=== PATIENT | female | born 1980 | race Caucasian/White ===

== ENCOUNTER → 2017-12-24 17:00 | Outpatient (CLI) | payer BC ==
[2012-10-13 06:47] VITALS: BMI 20.7
== END | disposition home or self-care (01) ==
LOC: D.MAMMO 14:30
DX: N64.4 Mastodynia (principal)

== ENCOUNTER 2019-08-18 13:48 | Inpatient (IN) | payer BC ==
[~2019-08-18] VITALS: Ht 160 cm; Wt 67.2 kg
--- NOTE | 2019-08-18 16:07 | NUR ---
PT VOMITING, UNABLE TO KEEP ANYTHING DOWN STATES STOMACH IS JUST FEELS VERY FULL AND NAUSEOUS, CT HERE TO TAKE PATIENT FOR SCAN, ADVISED PT SHE MAY END UP WITH NGT FOR GUT REST. CONTINUE WITH PLAN OF CARE
[2019-08-18 16:40] VITALS: BP 130/72
[2019-08-18 17:14] VITALS: BP 130/72; BMI 22.9
[2019-08-18 20:00] VITALS: BP 108/69
[2019-08-19] VITALS: BP 113/66
--- NOTE | 2019-08-19 02:50 | NUR ---
ASSESSED AT THE BEGINNING OF THE SHIFT. PT IS ALERT AND ORIENTED, ABLE TO VERBALIZE NEEDS. SHE HAS HAD SOME NAUSEA AND WAS GIVEN ZOFRAN ONCE BUT HELD OFF FROM PAIN MEDS UNTIL MUCH LATER. SHE STATED SHE DID NOT LIKE THE WAY IT MADE HER FEEL. LATER DURING THE NIGHT SHE DID ASK FOR IT DUE TO ABD PAIN. AT THIS TIME SHE IS ASLEEP. SHE IS GETTING UP TO THE BATHROOM AD CINDI AND HAS A FAMILY MEMBER SLEEPING IN THE ROOM WITH HER.
[2019-08-19 04:00] VITALS: BP 111/72
[2019-08-19 05:20] LABS: BASOPHILS 0.2 % (0-2); EOSINOPHILS 0.1 % (0-7); HEMATOCRIT 43.8 % (36.0-48.0); HEMOGLOBIN 14.6 g/dL (12-16); IMMATURE GRANULOCYTES 0.3 % (0-5); LYMPHOCYTES 4.1 % (15-50); MCH 30.4 pg (26.0-34.0); MCHC 33.3 g/dL (31.0-37.0); MCV 91.3 fL (80.0-100.0); MEAN PLATELET VOLUME 9.6 fL (7.4-10.4); MONOCYTES 5.7 % (2-11); NEUTROPHILS 89.6 % (40-80); PLATELET COUNT 183 10x3/uL (130-400); RDW 12.5 % (11.5-14.5); WBC 13.3 10x3/uL (4.8-10.8)
[2019-08-19 05:47] LABS: ALBUMIN 2.9 g/dL (3.4-5.0); ALKALINE PHOSPHATASE 72 U/L (46-116); ALT (SGPT) 25 U/L (10-68); BILIRUBIN - TOTAL 0.65 mg/dL (0.2-1.3); CALC OSMOLALITY 272 mosm/kg (275-300); CALCIUM 8.6 mg/dL (8.5-10.1); CARBON DIOXIDE 26.9 mmol/L (21.0-32.0); CHLORIDE - SERUM 102 mmol/L (98-107); CREATININE - SERUM 0.7 mg/dL (0.6-1.3); GLUCOSE 107 mg/dL (74-106); POTASSIUM - SERUM 3.9 mmol/L (3.5-5.1); PROTEIN - SERUM 6.6 g/dL (6.4-8.2); SODIUM 137 mmol/L (136-145); UREA NITROGEN 10 mg/dL (7-18); eGFR NON AFRICAN AMERICAN > 90 mL/min (90-120)
[2019-08-19 08:29] VITALS: BP 132/74
[2019-08-19 12:33] VITALS: BMI 22.8
[2019-08-19 12:52] VITALS: BP 114/64
[2019-08-19 18:14] VITALS: BP 114/63
[2019-08-19 20:00] VITALS: BP 105/55
[2019-08-20] VITALS (11 sets, daily range): BP systolic 110–149; BP diastolic 67–87
--- NOTE | 2019-08-20 06:10 | NUR ---
ASSESSED AT THE BEGINNING OF THE SHIFT. PT IS ALERT AND ORIENTED, ABLE TO VEBALIZE NEEDS. MS MONTALVO HAS REMAINED IN BED WITH HER AT THE BEDSIDE EXCEPT FOR GETTING UP TO THE BATHROOM. SHE HAS NEVER STATED SHE WAS PAIN FREE AND EVEN WHEN SHE REQUESTED AND RECEIVED PAIN MEDS SHE DID NOT REST WELL OR LOOK IF SHE WAS REALLY RECEIVING A LOT OF PAIN RELIEF. SHE COMPLAINS OF SPASMS LIKE SHOOTING PAIN LOW IN HER ABD TO EITHER SIDE. AT MIDNIGHT SHE WAS PLACED NPO FOR THE POSSIBLE SURGERY THIS MORNING. AT THIS TIME SHE IS RESTING BUT EASILY AWAKENED.
[2019-08-20 06:26] LABS: BASOPHILS 0.2 % (0-2); EOSINOPHILS 0.3 % (0-7); HEMATOCRIT 42.3 % (36.0-48.0); HEMOGLOBIN 13.9 g/dL (12-16); IMMATURE GRANULOCYTES 0.2 % (0-5); LYMPHOCYTES 6.8 % (15-50); MCH 30.4 pg (26.0-34.0); MCHC 32.9 g/dL (31.0-37.0); MCV 92.6 fL (80.0-100.0); MONOCYTES 7.9 % (2-11); NEUTROPHILS 84.6 % (40-80); PLATELET COUNT 178 10x3/uL (130-400); RBC 4.57 10x6/uL (4.00-5.40); RDW 12.6 % (11.5-14.5)
[2019-08-20 06:31] LABS: WBC 9.2 10x3/uL (4.8-10.8)
[2019-08-20 06:40] LABS: ALBUMIN 2.6 g/dL (3.4-5.0); ALKALINE PHOSPHATASE 81 U/L (46-116); ALT (SGPT) 20 U/L (10-68); BILIRUBIN - TOTAL 0.71 mg/dL (0.2-1.3); CALC OSMOLALITY 271 mosm/kg (275-300); CALCIUM 8.4 mg/dL (8.5-10.1); CARBON DIOXIDE 27.6 mmol/L (21.0-32.0); CHLORIDE - SERUM 100 mmol/L (98-107); CREATININE - SERUM 0.8 mg/dL (0.6-1.3); GLUCOSE 94 mg/dL (74-106); PROTEIN - SERUM 6.5 g/dL (6.4-8.2); SODIUM 136 mmol/L (136-145); UREA NITROGEN 12 mg/dL (7-18); eGFR NON AFRICAN AMERICAN 85 mL/min (90-120)
[2019-08-20 06:42] LABS: POTASSIUM - SERUM 3.3 mmol/L (3.5-5.1)
--- NOTE | 2019-08-20 08:34 | NUR ---
PATIENT SITTING UP IN CHAIR OVER TRASH CAN. ASKED IF SHE WAS NAUSEOUS AND SHE REPLIED THAT SHE WAS. WELL IN PAIN OF A 7 OUT OF 10. I PROVIDED ZOFRAN AND MORPHINE. PATIENT SAID SHE "DOESN'T LIKE THAT THE MORPHINE MAKES HER DROWSY AND HER CHEST HURT." I REPLIED WE COULD TRY AND GET HER PAIN MEDICATION CHANGED BUT MOST PAIN MEDS MAKE YOU DROWSY. ROSALES AT BEDSIDE. CL IN REACH. WCTM
--- NOTE | 2019-08-20 12:27 | NUR ---
ROSALES AT BEDSIDE. STATES IV IS BURNING. REPOSITIONED IV TUBING AND SLOWED MAG TO 50 ML/H. IV FLUSHED AND HAD BLOOD RETURN. PATIENT STATES IT DOESN'T HURT " BAD" NOW. CL IN REACH. WCTM
--- NOTE | 2019-08-20 14:25 | NUR ---
FAMILY IN ROOM. CONCERNED ABOUT WHAT TIME THE PROCEDURE WILL BE. ON PHONE WITH SURGERY NOW TO FIND OUT. CL IN REACH. TM
--- NOTE | 2019-08-20 21:05 | NUR ---
TOOK IV PUMP WITH LIAISON OFFICER PUMP W/ DILAUDID TO [facility] 7 AND GAVE REPORT TO NURSE.
--- NOTE | 2019-08-20 22:05 | NUR ---
PT RECEIVED FROM OR, PT IS INTUBATED, F/C INPLACE, NGT TO LEFT NARE AND CLAMPED, A-LINE TO RIGHT WRIST, IV TO LEFT FOREARM AND LEFT A/C, PT REPORT FROM TAMMY BUCHANAN, PT CONNECTED TO MONITORS. RT AT BEDSIDE SETTING UP VENT.
[2019-08-20 23:28] LABS: BASOPHILS 0.1 % (0-2); EOSINOPHILS 0 % (0-7); HEMATOCRIT 46.5 % (36.0-48.0); HEMOGLOBIN 15.6 g/dL (12-16); IMMATURE GRANULOCYTES 0.5 % (0-5); LYMPHOCYTES 4.2 % (15-50); MCH 30.7 pg (26.0-34.0); MCHC 33.5 g/dL (31.0-37.0); MCV 91.5 fL (80.0-100.0); MEAN PLATELET VOLUME 9.7 fL (7.4-10.4); MONOCYTES 5.8 % (2-11); NEUTROPHILS 89.4 % (40-80); PLATELET COUNT 209 10x3/uL (130-400); RBC 5.08 10x6/uL (4.00-5.40); RDW 12.5 % (11.5-14.5); WBC 8.4 10x3/uL (4.8-10.8)
[2019-08-20 23:49] LABS: ALKALINE PHOSPHATASE 81 U/L (46-116); BILIRUBIN - TOTAL 0.88 mg/dL (0.2-1.3); CALCIUM 7.9 mg/dL (8.5-10.1); CARBON DIOXIDE 25.1 mmol/L (21.0-32.0); CHLORIDE - SERUM 103 mmol/L (98-107); CREATININE - SERUM 0.7 mg/dL (0.6-1.3); MAGNESIUM - SERUM 1.8 mg/dL (1.8-2.4); PHOSPHOROUS 2.3 mg/dL (2.5-4.9); PROTEIN - SERUM 5.3 g/dL (6.4-8.2); SODIUM 137 mmol/L (136-145); UREA NITROGEN 14 mg/dL (7-18); eGFR NON AFRICAN AMERICAN > 90 mL/min (90-120)
[2019-08-20 23:51] LABS: ALBUMIN 1.8 g/dL (3.4-5.0); ALT (SGPT) 13 U/L (10-68); CALC OSMOLALITY 278 mosm/kg (275-300); GLUCOSE 175 mg/dL (74-106); TROPONIN-I < 0.017 ng/mL (0.000-0.060)
[2019-08-21] VITALS (25 sets, daily range): BP systolic 87–154; BP diastolic 50–93; Ht 160 cm; Wt 67.2 kg
--- NOTE | 2019-08-21 00:12 | NUR ---
PT SEDATED ON VENT SUPPORT, VSS, NO DISTRESS NOTED
--- NOTE | 2019-08-21 01:00 | NUR ---
PT SEDATED ON VENT SUPPORT, NO CHANGES NOTED, VSS, WILL MONITOR FOR CHANGES
--- NOTE | 2019-08-21 03:00 | NUR ---
PT REASSESSMENT COMPLETED AT THIS TIME, NO CHANGES NOTED, VSS
--- NOTE | 2019-08-21 05:00 | NUR ---
I&O AND DAILY WEIGHT DOCUMENTATION COMPLETE, FAMILY AT THE BEDSIDE AND UPDATED ON PATIENTS STATUS, VSS
[2019-08-21 05:01] LABS: BASOPHILS 0.1 % (0-2); EOSINOPHILS 0 % (0-7); HEMATOCRIT 45.5 % (36.0-48.0); HEMOGLOBIN 15.1 g/dL (12-16); IMMATURE GRANULOCYTES 0.4 % (0-5); LYMPHOCYTES 4.8 % (15-50); MCH 29.8 pg (26.0-34.0); MCHC 33.2 g/dL (31.0-37.0); MCV 89.9 fL (80.0-100.0); MEAN PLATELET VOLUME 9.6 fL (7.4-10.4); MONOCYTES 6.3 % (2-11); NEUTROPHILS 88.4 % (40-80); PLATELET COUNT 243 10x3/uL (130-400); RBC 5.06 10x6/uL (4.00-5.40); RDW 12.7 % (11.5-14.5); WBC 10.5 10x3/uL (4.8-10.8)
[2019-08-21 05:21] LABS: ALBUMIN 1.8 g/dL (3.4-5.0); ALKALINE PHOSPHATASE 77 U/L (46-116); ALT (SGPT) 14 U/L (10-68); BILIRUBIN - TOTAL 0.68 mg/dL (0.2-1.3); CALC OSMOLALITY 275 mosm/kg (275-300); CALCIUM 7.8 mg/dL (8.5-10.1); CARBON DIOXIDE 24.7 mmol/L (21.0-32.0); CHLORIDE - SERUM 104 mmol/L (98-107); CREATININE - SERUM 0.7 mg/dL (0.6-1.3); GLUCOSE 132 mg/dL (74-106); MAGNESIUM - SERUM 1.7 mg/dL (1.8-2.4); POTASSIUM - SERUM 4.1 mmol/L (3.5-5.1); PROTEIN - SERUM 5.3 g/dL (6.4-8.2); SODIUM 137 mmol/L (136-145); UREA NITROGEN 13 mg/dL (7-18); eGFR NON AFRICAN AMERICAN > 90 mL/min (90-120)
--- NOTE | 2019-08-21 07:56 | NUR ---
PT AWAKE. TURNED AND PT PP ON VENT INCREASED AND PT THRASHING AROUND APPEARS TO BE IN A PANIC. VERSED GIVEN.
--- NOTE | 2019-08-21 11:19 | NUR ---
DR PATINO HERE. REPORTED UOP MARGINAL. B/P /. IVF INCREASED ORDERED. PT AWAKE AND GAGING. VERSED GIVEN.
--- NOTE | 2019-08-21 12:14 | NUR ---
DR MARIE HERE. FENTANYL OFF CPAP TRIALS BEGAN.
--- NOTE | 2019-08-21 14:16 | NUR ---
DR SEGOVIA HERE. SPOKE TO PTS BY PHONE AND SPOKE TO PT AT BS.
[2019-08-21 18:50] LABS: BASOPHILS 0.1 % (0-2); EOSINOPHILS 0.1 % (0-7); HEMATOCRIT 39.7 % (36.0-48.0); HEMOGLOBIN 13.1 g/dL (12-16); IMMATURE GRANULOCYTES 0.5 % (0-5); LYMPHOCYTES 7.9 % (15-50); MCH 30.3 pg (26.0-34.0); MCV 91.7 fL (80.0-100.0); MEAN PLATELET VOLUME 10.2 fL (7.4-10.4); MONOCYTES 9.7 % (2-11); NEUTROPHILS 81.7 % (40-80); PLATELET COUNT 213 10x3/uL (130-400); RBC 4.33 10x6/uL (4.00-5.40); RDW 12.8 % (11.5-14.5); WBC 9.8 10x3/uL (4.8-10.8)
--- NOTE | 2019-08-21 19:00 | NUR ---
PT ASSESSMENT COMPLETED AT THIS TIME, PT AAOX4, PT SATTES THAT SHE IS FEELING MUCH BETTER AND HER ABD IS NOT HURTING VERY MUCH AT THIS TIME, VSS, WILL MONITOR FOR CHANGES
[2019-08-21 19:02] LABS: CALC OSMOLALITY 279 mosm/kg (275-300); CALCIUM 7.6 mg/dL (8.5-10.1); CARBON DIOXIDE 29.3 mmol/L (21.0-32.0); CHLORIDE - SERUM 105 mmol/L (98-107); CREATININE - SERUM 0.7 mg/dL (0.6-1.3); GLUCOSE 117 mg/dL (74-106); MAGNESIUM - SERUM 1.9 mg/dL (1.8-2.4); POTASSIUM - SERUM 4.3 mmol/L (3.5-5.1); SODIUM 139 mmol/L (136-145); UREA NITROGEN 16 mg/dL (7-18); eGFR NON AFRICAN AMERICAN > 90 mL/min (90-120)
--- NOTE | 2019-08-21 20:57 | NUR ---
PT C/O PAIN AND TIGHTNES TO LEFT FA IV SITE, SOME SWELLING NOTED, IV D/C AND IVF MOVED TO LEFT A/C IV AT THIS TIME, NO OTHER COMPLAINTS AT THIS TIME
--- NOTE | 2019-08-21 23:00 | NUR ---
ASSESSMENT COMPLETE PT STATES PAIN CONTROLLED WITH THREADER OPERATOR. C/O DISCOMFORT WITH NGT INFORMED AND EDUCATED ON NGT. PT WAS WANTING IT REMOVED INFORMED THAT IT WOULD BE UP TO PHYSICIANS WHEN TO DC BUT LIKELY TO HAVE THE NGT IN FOR COUPLE MORE DAYS APPLIED MOISTURIZOR CREAM TO EASE DISCOMFRT
[2019-08-22] VITALS (19 sets, daily range): BP systolic 104–126; BP diastolic 48–84
--- NOTE | 2019-08-22 05:00 | NUR ---
ATTEMPT TO GET AM LAB FROM RIGHT RADIAL ARTLINE FLUSHES EASILY BUT UNABLE TO GET LABS. CHARGE NURSE CALLED LAB TO INFORM THEY WILL SEND ADJUNCT FACULTY FOR MEDICAL TERMINOLOGY UP
--- NOTE | 2019-08-22 05:00 | NUR ---
FAMILY AT BEDSIDE FOR VISITATION
[2019-08-22 06:32] LABS: BASOPHILS 0.2 % (0-2); EOSINOPHILS 0.5 % (0-7); HEMATOCRIT 38.9 % (36.0-48.0); HEMOGLOBIN 12.7 g/dL (12-16); IMMATURE GRANULOCYTES 0.2 % (0-5); MCH 30.3 pg (26.0-34.0); MCHC 32.6 g/dL (31.0-37.0); MCV 92.8 fL (80.0-100.0); MEAN PLATELET VOLUME 9.6 fL (7.4-10.4); MONOCYTES 10.5 % (2-11); NEUTROPHILS 75.6 % (40-80); PLATELET COUNT 237 10x3/uL (130-400); RBC 4.19 10x6/uL (4.00-5.40); RDW 13.2 % (11.5-14.5); WBC 8.5 10x3/uL (4.8-10.8)
[2019-08-22 06:47] LABS: ALBUMIN 1.8 g/dL (3.4-5.0); ALKALINE PHOSPHATASE 66 U/L (46-116); ALT (SGPT) 15 U/L (10-68); BILIRUBIN - TOTAL 0.38 mg/dL (0.2-1.3); CALC OSMOLALITY 278 mosm/kg (275-300); CALCIUM 7.7 mg/dL (8.5-10.1); CARBON DIOXIDE 32.1 mmol/L (21.0-32.0); CHLORIDE - SERUM 104 mmol/L (98-107); CREATININE - SERUM 0.6 mg/dL (0.6-1.3); GLUCOSE 87 mg/dL (74-106); POTASSIUM - SERUM 3.6 mmol/L (3.5-5.1); PROTEIN - SERUM 5.6 g/dL (6.4-8.2); SODIUM 140 mmol/L (136-145); UREA NITROGEN 15 mg/dL (7-18); eGFR NON AFRICAN AMERICAN > 90 mL/min (90-120)
--- NOTE | 2019-08-22 08:15 | NUR ---
RIGHT RADIAL SHERIE AND DE LA CRUZ CATHETER DC'D PER DR. SEGOVIA. NGT REMOVED PER DR. SEGOVIA. PT RATES PAIN 6/10 AT ABDOMINAL INCISION. DESIGN ENGINEERING TECHNICIAN IN USE. WILL CONTINUE TO MONITOR.
--- NOTE | 2019-08-22 08:42 | NUR ---
MARY DRAIN ON ABDOMEN DC'D AT THIS TIME PER DR. SEGOVIA. BETADINE SWABS USED. 4X4 AND TEGEDERM DRESSING APPLIED TO AREA. PT TOLERATED WELL. NO FURTHER NEEDS. WILL CONTINUE TO MONITOR.
--- NOTE | 2019-08-22 11:00 | NUR ---
REASSESSMENT DONE SEE FLOW SHEET VSS. NO SIGNS OF ACUTE DISTRESS NOTED.
--- NOTE | 2019-08-22 13:11 | NUR ---
Nutrition Follow-up: POD 2 exlap with open cecectomy and bowel decompression. NGT removed. Per MD, possible clear liquids tomorrow if doesn't require replacement of NGT. Had sips of water today. Diet: NPO (ice chips and sips of H2O) Wt: 148# (08/22 - bedscale); 139.9# (08/21 - bedscale) Labs noted: Ca 7.7, Alb 1.8 Meds noted: LR @ 125 -Pt NPO/clear liquids since admit (08/18); if unable to advance diet, rec initiate nutrition support. -RD following.
--- NOTE | 2019-08-22 15:05 | NUR ---
1300 PT AMBULATED WITH ASSISTANCE FROM CHAIR. NO SIGNS OF ACUTE DISTRESS NOTED. 1500 REASSESSMENT DONE SEE FLOW SHEET VSS
--- NOTE | 2019-08-22 21:50 | NUR ---
OOB TO BATHROOM. VOIDED. AMBULATED IN HALLWAY FOR APPROX 10 MINUTES. ASSISTED BACK TO BED. C/O SEVERE PAIN. ENCOURAGED PIPE FITTER APPRENTICE USE MORE FREQUENTLY.
[2019-08-23] VITALS (15 sets, daily range): BP systolic 101–129; BP diastolic 58–96
--- NOTE | 2019-08-23 04:30 | NUR ---
OOB. C/O SEVERE ABD PAIN. WALKED THE LENGTH OF THE HALLWAY X 2. REPORTS FEELING BETTER AFTER WALKING. TO CHAIR AT BEDSIDE.
[2019-08-23 07:19] LABS: ALBUMIN 1.9 g/dL (3.4-5.0); ALKALINE PHOSPHATASE 69 U/L (46-116); ALT (SGPT) 16 U/L (10-68); BILIRUBIN - TOTAL 0.41 mg/dL (0.2-1.3); CALCIUM 7.9 mg/dL (8.5-10.1); CARBON DIOXIDE 32.6 mmol/L (21.0-32.0); CHLORIDE - SERUM 102 mmol/L (98-107); CREATININE - SERUM 0.6 mg/dL (0.6-1.3); GLUCOSE 81 mg/dL (74-106); POTASSIUM - SERUM 3.2 mmol/L (3.5-5.1); PROTEIN - SERUM 5.7 g/dL (6.4-8.2); SODIUM 138 mmol/L (136-145); eGFR NON AFRICAN AMERICAN > 90 mL/min (90-120)
[2019-08-23 07:22] LABS: CALC OSMOLALITY 272 mosm/kg (275-300); UREA NITROGEN 6 mg/dL (7-18)
[2019-08-23 07:29] LABS: BASOPHILS 0.4 % (0-2); EOSINOPHILS 2.7 % (0-7); HEMOGLOBIN 12.1 g/dL (12-16); IMMATURE GRANULOCYTES 0.6 % (0-5); LYMPHOCYTES 18.3 % (15-50); MCH 29.7 pg (26.0-34.0); MCHC 31.8 g/dL (31.0-37.0); MCV 93.4 fL (80.0-100.0); MEAN PLATELET VOLUME 9.6 fL (7.4-10.4); MONOCYTES 12.8 % (2-11); NEUTROPHILS 65.2 % (40-80); PLATELET COUNT 255 10x3/uL (130-400); RBC 4.07 10x6/uL (4.00-5.40); WBC 7.7 10x3/uL (4.8-10.8)
--- NOTE | 2019-08-23 09:00 | NUR ---
0700 ASSESSMENT DONE SEE FLOW SHEET. VSS. 0900 MEDS GIVEN PER OCT. VSS. R FOREARM PIV STARTED 20G.
--- NOTE | 2019-08-23 10:22 | OP ---
PATIENT NAME: MARIANO MONTALVO MEDICAL RECORD: [id number] :78 [facility] ADMISSION DATE:08/18/19 SURGEON: RAY SEGOVIA MD DATE OF OPERATION: 08/20/2019 PREOPERATIVE DIAGNOSIS: 1. Acute abdomen, probable acute appendicitis. 2. Ileus. POSTOPERATIVE DIAGNOSES: 1. Acute abdomen due to ruptured gangrenous appendicitis. 2. Free pus (non-loculated) throughout the abdomen with diffuse peritonitis. 3. Appendix that was stuck down to the pelvic sidewall, making it hazardous to proceed with further with a laparoscopic approach. 4. Ileus. 5. Sepsis. 6. Dilated small bowel, which required decompression, so they could be reinserted into the abdomen. 7. Intraoperative ventricular tachycardia. PROCEDURES: 1. Attempted laparoscopic appendectomy. 2. Conversion to exploratory laparotomy. 3. Open cecectomy (colon resection of the cecum). 4. Small-bowel decompression. DRAINS: One 10-Polish round closed suction drain. The risks, possible complications, and alternatives to the procedure were explained to the patient. She elected to proceed. The discussion specifically included, but was not limited to, bleeding requiring an emergency reoperation, infection, small bowel injury and the need for an open procedure. DESCRIPTION OF THE PROCEDURE: The patient was seen early on 08/20/2019. A physical exam was performed and she was certainly no better than the day before. I received a hand-off from Dr. Garcia. It was his impression that the patient needed an operation on Thursday if the patient was no better. Clearly, on physical examination, she was no better. She had peritonitis to percussion and was tender in all quadrants, mainly in the right lower quadrant. The patient was conveyed to the operating room urgently on 08/20/2019. General anesthesia was induced by the anesthesia staff. The abdomen was sterilely prepped and draped. A small skin incision was accomplished in the left upper quadrant. A Veress needle was inserted through the skin incision into the peritoneal cavity. CO2 insufflation was begun. Once a sufficient pneumoperitoneum had been achieved, a 5-mm trocar was inserted through an incision in the left lower quadrant. A 5-mm trocar was inserted through an incision in the left upper quadrant. A 12-mm trocar was inserted through an incision at the umbilicus. The distention of the small bowel from the ileus made it difficult to perform the operation. Purulence was identified in all quadrants. Cultures were obtained with suctioning. I irrigated and aspirated in all quadrants. I OPERATIVE REPORT [id number] MARIANO MONTALVO elevated the uterus, the right and left tubes and ovaries. Exudate was found on the bowel as well as the tubes, ovaries, and uterus. The appendix was identified along the right pelvic sidewall. Utilizing blunt dissection, I released some interloop abscesses in the small bowel. I began to mobilize the appendix and was fearful that this would cause a right ureteral injury. Additionally, with retraction of the appendix, which was gangrenous and perforated, portions of the appendix began to tear-away. The largest of these, which was the tip of the appendix was placed within a bag retrieval device and was withdrawn through the umbilical fascia defect. The 12-mm trocar was replaced. The abdomen was reinsufflated. I continued my dissection along the pelvic sidewall and then came to a point where I was uncomfortable with further dissection as I was fearful that this would lead to ureteral injury. I elected to convert to exploratory laparotomy. I went out and got my headlight and upon returning to the room, I was told the patient was in ventricular tachycardia with a pulse. We undraped the patient. Defibrillator pads were placed on the patient and we covered up the incisions with a sterile blue towel. We were preparing for chest compressions and defibrillation should the patient lose a pulse. She converted into sinus rhythm spontaneously, which is quite unusual. Some additional medications were given and these are listed on the anesthesia sheet. The patient stayed in sinus rhythm and was really not even tachycardic after this episode. We then re-prepped patient. A transverse incision was accomplished in the suprapubic area. This was a Pfannenstiel type incision. I dissected down through skin and subcutaneous tissue as well as Anupam fascia. The anterior fascia was incised transversely. I then performed undermining of the anterior fascia proximally and distally. The rectus muscles were in the midline. The peritoneal cavity was entered sharply. An Jamar retractor was placed. I packed off the small bowel as best I could. It was difficult because it was very dilated and kept coming into the operative field. I incised along the white line of Toldt. Most of the dissection of the cecum was posterior dissection and was a blunt dissection. There was some contamination with some drainage of feculent material out through the area where the appendix had ripped away. I began my dissection of the appendix off the right pelvic sidewall. There was a lot of induration and this made the dissection more difficult. I identified what appeared to be the right ureter and it appeared to be intact. I was able to dissect the tissue off of it. I was able to mobilize cecum enough to get it into the operative field. I then identified that the appendiceal stump was very indurated and likely would not hold efraín very well. I took the Endo-JAYDE stapler and stapled across the mid cecum. This took 2 of the blue loads. I identified that the staple line was going to be under tension and I elected to excise the entire visualized portions of the cecum and this was done with the Endo-JAYDE. Also, a seromyotomy of the distal ileum as well as a OPERATIVE REPORT [id number] MARIANO MONTALVO seromyotomy in the colon were closed with interrupted imbricating 3-0 Vicryl sutures. At no time was there any apparent full-thickness bowel injury. I then exteriorized as much of the small bowel as I could through this incision. I palpated the ligament of Treitz and ran the small bowel from there to the ileocecal valve. I bluntly swept away as much of the exudate as I could the small bowel. Down in the pelvis, I irrigated. Here, I swept away as much of the exudate off the cul-de-sac as well as the rectum, tubes and ovaries as well as the posterior uterus. I then irrigated in all quadrants and aspirated. There was no bleeding. I tried to re-insert the small bowel into the abdomen and was unable to do so due to the distention of small bowel from the patient's ileus. I then elected to decompress the small bowel. Proximally at the midpoint between the jejunum and the ileum. A pursestring suture was applied on the antimesenteric border of the small bowel. This was a 3-0 Vicryl. An enterotomy was accomplished through the bowel at this site. Utilizing a Cervantes sucker initially at the afferent position and then in the efferent position, I was able to "milk" the enteral contents to the Cervantes sucker where I suctioned out the enteral contents. Once I was satisfied with the decompression of the small bowel, I then performed a tangential firing of the TA-30 stapler in order to close this enteric defect. I was then able to re-insert the small bowel into the abdominal cavity. There appeared to be no twisting of the small bowel. I irrigated and aspirated in the pelvis. There was no bleeding. I then brought out a 10-Polish round closed suction drain and placed it down in the pelvis. The drain was sutured to skin with a 2-0 nylon. This drain had been brought out through the lowest 5-mm trocar site, which was in the left lower quadrant. The 5-mm trocar sites were closed with interrupted intracuticular 3-0 Vicryls. The fascia at the umbilicus was closed with a single 0-Vicryl suture. The skin at the umbilicus was closed with interrupted 4-0 Vicryl Rapide suture. The peritoneum at the Pfannenstiel incision was reperitonealized with a running #1 Vicryl. The rectus muscles were approximated in the midline with interrupted horizontal mattress #1 Vicryls. The anterior fascia was approximated with running looped #1 PDS from the left and the right. Anupam's fascia was approximated with interrupted 3-0 Vicryls. The subdermis was approximated with interrupted 3-0 Vicryls. The skin was approximated with a running intracuticular 3-0 Vicryl. Sterile dressings were applied. The patient was then conveyed to the intensive care unit in critical but stable condition. I had discussed with Dr. Powell intraoperatively whether we should extubate the patient or not. He felt that keeping the patient intubated overnight was the alvarado thing to do, so that is what we did. I agree. TRANSINT:[id number] Voice Confirmation ID: [id number] DOCUMENT ID: [id number] 08/23/2019 Edited for director of physiotherapy services error, dmm. OPERATIVE REPORT [id number] MARIANO MONTALVO, RAY BENJAMIN at 1022 CC: ALENA POWELL MD and YVETTE RODRIGUEZ MD [id number] DICTATION DATE: 08/21/19 1539 [employer] INS[employer] CLAIMS ADJUSTER: 08/21/191999 ADM IN [facility] [address] [place] [address]
--- NOTE | 2019-08-23 11:00 | NUR ---
REASSESSMENT DONE SEE FLOW SHEET VSS
--- NOTE | 2019-08-23 15:00 | NUR ---
1300 WATER PROVIDED PER PT REQUEST. WILL CONTINUE TO MONITOR. 1500 REASSESSMENT DONE SEE FLOW SHEET.
[2019-08-23 19:02] LABS: MAGNESIUM - SERUM 1.9 mg/dL (1.8-2.4)
--- NOTE | 2019-08-23 19:03 | MORECARE ---
CASE MANAGEMENT DISCHARGE SUMMARY PATIENT: MARIANO MONTALVO UNIT: [id number] ADM DATE: 08/18/19 AGE: 39 : [birth year] SEX: F ROOM/BED: [facility] AUTHOR: CHELY VENEGAS PHYSICIAN: REFERRING PHYSICIAN: YVETTE RODRIGUEZ MD DATE OF SERVICE: 08/23/19 Discharge Plan Patient Name: MARIANO MONTALVO [facility] [facility] 1980 Planned Disposition: Home Anticipated Discharge Date: Discharge Date: Expected LOS: Initial Reviewer: [email or web address] Initial Review Date: 08/23/2019 Generated: 08/23/19 8:03 pm Patient Name: MARIANO MONTALVO Page [id number] at 1903 All edits/amendments must be made on the electronic document DICTATION DATE: 08/23/191902 PIECE DYER: JORDANA 08/23/191902 RPT#: [id number] DC DATE: STATUS: ADM IN [facility] [address] [place] [address] END OF REPORT
--- NOTE | 2019-08-23 19:10 | MORECARE ---
CASE MANAGEMENT DISCHARGE SUMMARY PATIENT: MARIANO MONTALVO UNIT: [id number] ADM DATE: 08/18/19 AGE: 39 : [birth year] SEX: F [facility] AUTHOR: RUBI,DOC PHYSICIAN: REFERRING PHYSICIAN: YVETTE RODRIGUEZ MD DATE OF SERVICE: 08/23/19 Discharge Plan Patient Name: MARIANO MONTALVO Facility: [facility]:[place] : 1980 Planned Disposition: Home Anticipated Discharge Date: Discharge Date: Expected LOS: Initial Reviewer: [email or web address] Initial Review Date: 08/23/2019 Generated: 08/23/19 8:10 pm Comments DCP- Discharge Planning Updated by [email or web address]: Ania Thorpe on 08/23/19 6:[address] Patient Name: MARIANO MONTALVO Admission Status: Elective Accout number: [id number] Admission Date: 08-18-2019 : 1980 Admission Diagnosis: Attending: YVETTE RODRIGUEZ Current LOS: 5 Anticipated DC Date: Planned Disposition: Home Primary Insurance[facility] [employer] [facility] Discharge Planning Comments: CM met with patient to complete initial dc planning assessment. CM educated patient on the CM role and verbal consent given by patient to complete assessment. Patient lives at home with her where she is independent with her care. At discharge patient plans to return home and feels this is a safe discharge. CM discussed availability of home health, rehab services, and medical equipment. Her family will drive her home. Patient denied known discharge needs at this time. CM will continue to follow and will assist as needed with dc plans/needs. Nurse Practitioner Physician Assistant: Ania Thorpe DCPIA - Discharge Planning Initial Assessment Updated by [email or web address]: Ania Thorpe on 08/23/19 7:03 pm * Is the patient Alert and Oriented? Yes * How many steps to enter\exit or inside your home? * PCP JENNIFER * Pharmacy [facility] * Preadmission Environment Home with Family * ADLs Independent * Equipment None * List name and contact numbers for known caregivers / representatives who currently or will assist patient after discharge: THOMAS MONTALVO - SPOUSE - [phone] JAQUAN MONTALVO - DAUGHTER- [phone] * Verbal permission to speak to the caregivers and representatives has been obtained from the patient. Yes * Community resources currently utilized None * Additional services required to return to the preadmission environment? No * Can the patient safely return to the preadmission environment? Yes * Has this patient been hospitalized within the prior 30 days at any hospital? No Last DP export: 08/23/19 6:03 pm Patient Name: MARIANO MONTALVO Page [phone] at 1910 All edits/amendments must be made on the electronic document DICTATION DATE: 08/23/191909 UNIT SUPERVISOR: JORDANA 08/23/191909 RPT#: [id number] DC DATE: STATUS: ADM IN [facility] [address] [place] [address] END OF REPORT
[2019-08-23 19:11] LABS: POTASSIUM - SERUM 3.7 mmol/L (3.5-5.1)
--- NOTE | 2019-08-23 19:28 | NUR ---
IN ROOM, ALERT AND ORIENTED TIMES 3. IV TO RIGHT AC SALINE LOC, TO LEFT FOREARM PATENT WITH LR AND SUPERVISOR ROSE GRADING INFUSING VIA PUMP PER ORDERS. HAS SOME PAIN TO ABDOMEN, BUT STATES IT IS MORE OF DISCOMFORT THAT MEDICATION IS EFFECTIVE. REQUESTS SHOWER, WILL BE GRANTED. ABLE TO AMBULATE AROUND ROOM WITHOUT DIFFICULTY. WILL NOTE ANY CHANGE.
--- NOTE | 2019-08-24 01:12 | NUR ---
I have reviewed this patient and I concur with the Shift Assessment completed by the Licensed Practical Nurse today this shift.
[2019-08-24 01:30] VITALS: BP 127/75
[2019-08-24 05:14] VITALS: BP 127/67
[2019-08-24 07:32] VITALS: BP 131/78
--- NOTE | 2019-08-24 08:00 | NUR ---
ALERT AND ORIENTED. LUNGS CLEAR BILATERALLY. HEART SOUNDS S1 AND S2 HEARD IN ALL PEREZ. BOWEL SOUNDS ACTIVE X 4. SKIN INTACT WITHOUT REDNESS. IV PATENT TO RIGHT AC WITHOUT REDNESS. IV PATENT TO LFA SL. DENIES NEEDS. BED LOW. CALL JOHNSON AND PERSONAL ITEMS IN REACH. WILL CONTINUE TO MONITOR.
--- NOTE | 2019-08-24 15:40 | NUR ---
PATIENT STATES IV TO LFA AND RIGHT AC PAINFUL. BOTH IVS FLUSH WELL BUT PATIENT STATES PAIN WITH FLUSHING. BOTH IVS REMOVED WITH TIP INTACT. RESITED TO LEFT LOWER FOREARM WITH 22GAUGE.
[2019-08-24 16:05] VITALS: BP 130/78
[2019-08-24 19:30] VITALS: BP 122/78
--- NOTE | 2019-08-24 20:00 | NUR ---
ALERT UP AMBULATIN GIORGI CALABRESE DILAUDID DIMENSIONAL ENGINEER IN USE FOR PAIN CONTROL, SEE ASSESSMENT, CALL MISSAEL LANE
[2019-08-25 00:30] VITALS: BP 118/74
[2019-08-25 05:30] VITALS: BP 120/73
--- NOTE | 2019-08-25 07:10 | NUR ---
PT RESTING IN BED. NO SIGNS OF DISTRESS. IV TO LEFT FORARM PATENT NO REDNESS OR TENDERNESS. ON TELEMETRY. INCISION TO ABDOMEN. CLEAN AND INTACT. DENIES ANY FURTHER NEED AT THIS TIME. CALL LIGHT IN REACH. BED LOW POSITION. NO FAMILY AT BEDSIDE AT THIS TIME.
[2019-08-25 09:20] VITALS: BP 132/82
[2019-08-25 12:31] VITALS: BP 129/74
--- NOTE | 2019-08-25 14:04 | EC ---
PATIENT:MARIANO MONTALVO DATE OF SERVICE: 08/18/19 SEX: F MEDICAL RECORD: [id number] DATE OF : [birth year] LOCATION:[facility] AGE OF PATIENT: 39 ADMISSION DATE: 08/18/19 REFERRING PHYSICIAN: INTERPRETING PHYSICIAN: MILANA GONZALEZ MD ECHOCARDIOGRAM REPORT ECHO CHARGES 4 ECHO COMPLETE Date: 08/24/19 CLINICAL DIAGNOSIS: V TACH ECHOCARDIOGRAPHIC MEASUREMENTS (adult normal given) AC root (d.<3.7cm) 3.0 cm LV Septum d (<1.2 cm> 1.1 cm Valve Excursion 1.7 cm LV Septum (systole) 1.4 cm Left Atria (s.<4.0cm> 3.6 cm LVPW d(<1.2cm) 1.4 cm RV (d.<2.3cm) 3.1 cm LVPW (sytole) 1.7 cm LV diastole(<5.6CM) 4.1 cm MV E-F(>70mm/sec) cm LV systole 2.9 cm LVOT Diameter 2.0 cm MV exc.(>10mm) 1.7 cm Est.ejection fraction (50-75%) % DOPPLER: LVIT cm/sec A 91.0 cm/sec E 65.0 cm/sec LA cm/sec RVSP 15 mmHg LVOT 86 cm/sec AOP1/2T m/s Asc. Ao 142 cm/sec RVOT 48 cm/sec RA cm/sec PA 91 cm/sec AV Gradient Peak 8.09 mmHg AV Mean 4.08 mmHg AV Area 2.1 cm MV Gradient Peak 2.87 mmHg MV Mean 1.10 mmHg MV Area cm COMMENTS: Heel Caser: Christopher WELLS Classification Officer: 1 Dr. Gonzalez TAPE# PACS Pericardial Effusion N DATE OF SERVICE: Echocardiogram FINDINGS: 1. Left ventricular chamber size is within normal limits. Left ventricular systolic function is normal. Overall ejection fraction estimated at 60%. 2. Left atrium, right atrium, and right ventricle chamber sizes are within normal limits. 3. Valvular structures have normal structure and motion. ECHOCARDIOGRAM REPORT [id number] MARIANO MONTALVO 4. Doppler interrogation reveals no significant valvular insufficiency or stenosis. 5. No evidence of pericardial effusion or left ventricular thrombus. TRANSINT:[id number] Voice Confirmation ID: [id number] DOCUMENT ID: [id number] MILANA GONZALEZ MD at 1404 CC: [id number] DICTATION DATE: 08/24/19 1626 BUILDING CLEANING SUPERVISOR: 08/25/19 0237 ADM IN [facility] [address] [place] [id number]
[2019-08-25 17:36] VITALS: BP 128/80
--- NOTE | 2019-08-25 19:00 | NUR ---
A/O WITH NO SIGNS OF DISTRESS. IV TO THE LT FOREARM WITH NO REDNESS OR SWELLING NOTED. LAP SITES AND LATERAL INCISION NOTED TO ABDOMEN. DISTENDED ABDOMEN NOTED WELL. DENIES NO NEEDS AT THIS TIME. CONTINUE PLAN OF CARE.
[2019-08-25 19:30] VITALS: BP 120/72
--- NOTE | 2019-08-25 22:00 | NUR ---
NG TUBE INSERTED TO THE RT NARE. GURGLING ASCULATED. AWAITING IMAGING TO CONNECT TO SUCTION. WILL CONTINUE TO MONITOR.
--- NOTE | 2019-08-26 00:26 | NUR ---
RECEIVED IMAGING REPORT. CONNECTED NGT TO CONTINUOUS INTERMEDIATE SUCTION. LIGHT GREEN DISCHARGE NOTED INTO CANISTER. WILL CONTINUE TO MONITOR.
[2019-08-26 00:30] VITALS: BP 118/67
--- NOTE | 2019-08-26 04:00 | NUR ---
HAD DARK GREEN LIQUID STOOL THIS MORNING. DENIES NO OTHER NEEDS AT THIS TIME. CONTINUE PLAN OF CARE.
[2019-08-26 05:30] VITALS: BP 136/80
--- NOTE | 2019-08-26 07:10 | NUR ---
PT RESTING IN BED. NO SIGNS OF DISTRESS. IV TO RIGHT UPPER ARM PATENT NO REDNESS OR TENDERNESS. NG TUBE TO RIGHT NARE. ADVANCED BY COMPLAINS OF PAIN. MEDICATIONS GIVEN. DENIES ANY FURTHER NEED AT THIS TIME. CALL LIGHT IN REACH. BED LOW POSITION. FAMILY AT BEDSIDE AT THIS TIME.
[2019-08-26 09:35] VITALS: BP 140/77
[2019-08-26 10:22] LABS: PHOSPHOROUS 2.9 mg/dL (2.5-4.9)
--- NOTE | 2019-08-26 11:00 | NUR ---
Nutrition consult for TPN: Chart reviewed Labs ordered Wt: 148# Clear liquid diet TPN ordered RDN following.
[2019-08-26 11:14] LABS: CALC OSMOLALITY 271 mosm/kg (275-300); CALCIUM 8.1 mg/dL (8.5-10.1); CARBON DIOXIDE 29.6 mmol/L (21.0-32.0); CHLORIDE - SERUM 100 mmol/L (98-107); CREATININE - SERUM 0.6 mg/dL (0.6-1.3); GLUCOSE 83 mg/dL (74-106); POTASSIUM - SERUM 3.9 mmol/L (3.5-5.1); SODIUM 138 mmol/L (136-145); UREA NITROGEN 4 mg/dL (7-18); eGFR NON AFRICAN AMERICAN > 90 mL/min (90-120)
[2019-08-26 13:41] VITALS: BP 125/73
--- NOTE | 2019-08-26 14:01 | NUR ---
I have reviewed this patient and I concur with the Shift Assessment completed by the Licensed Practical Nurse today this shift.
[2019-08-26 17:16] VITALS: BP 128/85
--- NOTE | 2019-08-26 19:30 | NUR ---
A/O WITH NO SIGNS OF DISTRESS. MIDLINE NOTED TO THE RT UPPER ARM, DRESSING CDI. NGT NOTED TO THE RT NARE WITH GREEN DISCHARGE. GURGLING UPON ASCULTATION. REPORTS THAT SHE IS PASSING SOME GAS. DENIES NO OTHER NEEDS AT THIS TIME. CONTINUE PLAN OF CARE.
[2019-08-26 20:00] VITALS: BP 120/67
--- NOTE | 2019-08-26 22:20 | NUR ---
BM OF DARK GREEN LIQUID. REPORTS SHE IS PASSING GAS. DENIES NO OTHER NEEDS AT THIS TIME. CONTINUE PLAN OF CARE.
[2019-08-27] VITALS: BP 140/78
--- NOTE | 2019-08-27 03:30 | NUR ---
WALKED AROUND UNIT X3 AND OVER TO MED II. ASSITED BACK TO BED AND CONNECTED BACK UP TO SUCTION. DENIES NO OTHER NEEDS AT THIS TIME. CONTINUE PLAN OF CARE.
[2019-08-27 04:00] VITALS: BP 147/88
[2019-08-27 05:49] LABS: CALC OSMOLALITY 275 mosm/kg (275-300); CALCIUM 8.6 mg/dL (8.5-10.1); CARBON DIOXIDE 31.2 mmol/L (21.0-32.0); CHLORIDE - SERUM 99 mmol/L (98-107); CREATININE - SERUM 0.7 mg/dL (0.6-1.3); MAGNESIUM - SERUM 1.8 mg/dL (1.8-2.4); PHOSPHOROUS 2.4 mg/dL (2.5-4.9); POTASSIUM - SERUM 3.5 mmol/L (3.5-5.1); SODIUM 138 mmol/L (136-145); UREA NITROGEN 4 mg/dL (7-18); eGFR NON AFRICAN AMERICAN > 90 mL/min (90-120)
[2019-08-27 05:57] LABS: GLUCOSE 145 mg/dL (74-106)
--- NOTE | 2019-08-27 09:10 | NUR ---
Nutrition follow-up: Chart reviewed PO4 slightly low; recommend replace per electrolyte replacement protocol. Will continue current TPN regimen. RDN following.
[2019-08-27 09:13] VITALS: BP 150/77
--- NOTE | 2019-08-27 16:52 | NUR ---
HAS AMBULATED IN HALLS WITH .SHE IS WITHOUT DISTRESS.
--- NOTE | 2019-08-27 19:15 | NUR ---
BEDSIDE REPORT RECEIVED. PATIENT ALERT AND ORIENTED. HAS NGT TO RIGHT HANSON THAT IS SECURED AND MARKED IN PLACE. PATIENT HAS UPPER RIGHT ARM PICC LINE THAT IS INFUSING TPN @ 40, LR @ 75, AND DILAUDID 0.2/NO LOCK OUT. PATIENT HAS 3 LAP SITES TO ABDOMEN AND A LOWER ABDOMINAL INCISION THAT ARE ALL WELL APPROXIMATED WITH NO S/SX OF DEHISCENCE. PATIENT REQUETS TO AMBULATE. DENIES FURTHER NEEDS AT THIS TIME. CPOC.
[2019-08-27 19:30] VITALS: BP 149/84
--- NOTE | 2019-08-27 20:30 | NUR ---
AMBULATED UNIT SEVERAL TIMES FOR 45 MINUTES. TOLERATED WELL. RETURNED TO BED WITH NO PROBLEMS.
[2019-08-28] VITALS (7 sets, daily range): BP systolic 121–139; BP diastolic 70–90
--- NOTE | 2019-08-28 02:19 | NUR ---
RESTING WITH NO S/SX OF DISTRESS. TICKET PULLER SYRINGE CHANGED. CPOC.
--- NOTE | 2019-08-28 03:35 | NUR ---
I have reviewed this patient and I concur with the Shift Assessment completed by the Licensed Practical Nurse today this shift.
[2019-08-28 05:11] LABS: CALC OSMOLALITY 276 mosm/kg (275-300); CALCIUM 8.6 mg/dL (8.5-10.1); CARBON DIOXIDE 32.9 mmol/L (21.0-32.0); CHLORIDE - SERUM 104 mmol/L (98-107); CREATININE - SERUM 0.6 mg/dL (0.6-1.3); GLUCOSE 116 mg/dL (74-106); PHOSPHOROUS 3.2 mg/dL (2.5-4.9); POTASSIUM - SERUM 3.4 mmol/L (3.5-5.1); SODIUM 140 mmol/L (136-145); UREA NITROGEN 4 mg/dL (7-18); eGFR NON AFRICAN AMERICAN > 90 mL/min (90-120)
--- NOTE | 2019-08-28 05:33 | NUR ---
FLUSHED NGT WITH TAMMY SUTTON. FLUSHED 180 ML TO MAKE SURE NGT REMAINS PATENT. APPEARS TO BE. TOTAL NGT CONTENTS WHEN I&O COLLECTED 250. NGT 70
--- NOTE | 2019-08-28 07:28 | NUR ---
PT IS RESTING IN BED WITH EYES CLOSED. RESPIRATIONS ARE EVEN AND UNLABORED. PT IS EASILY AROUSED WITH VERBAL STIMULATION. PT IS AAO X 4 UPON AROUSAL. NG TUBE TO RIGHT NARE SET TO LIS. LIGHT GREEN FLUID NOTED IN COLLECTION CHAMBER. PT STATES THAT SHE HAS BEEN PASSING GAS THROUGHOUT THE NIGHT BUT DENIES HAVING HAD A RECENT BM. PT DENIES TENDERNESS UPON PALPATION TO ABDOMEN. PT REPORTS SLIGHT NAUSEA, DENIES RPESENCE OF VOMITING. BS HYPOACTIVE X 4. BED IS IN THE LOWEST POSITION. CALL LIGHT AND BEDSIDE TABLE ARE WITHIN REACH. SIDE RAILS X 2. PT DENIES FURTHERN EEDS. WILL CONT TO MONITOR.
--- NOTE | 2019-08-28 09:46 | NUR ---
Nutrition follow-up: Chart reviewed Will continue current TPN regimen RDN following
--- NOTE | 2019-08-28 17:45 | NUR ---
LIPIDS NOT AVAILABLE. MARINE CARGO SURVEYOR NOTIFIED OF NEED. MARINE CARGO SURVEYOR TO BRING LIPIDS FOR ADMINISTRATION.
--- NOTE | 2019-08-28 19:05 | NUR ---
PATIENT ALERT AND ORIENTED. ASKED TO TAKE SHOWER. PROVIDED NEEDS AND WRAPPED PICC INSERTION SITE. PATIENT NGT IS CLAMPED AND TO REMAIN THAT WAY UNLESS INTERVENTION IS NEEDED PER ORDER. PATIENT DENIES PAIN OR DISCOMFORT AT THIS TIME. STATES "I AM PASSING GAS." COMPLAINS OF THROAT PAIN BUT DENIES SEVERITY. CPOC.
--- NOTE | 2019-08-28 20:30 | NUR ---
PATIENT HAD BOWEL MOVEMENT. LOOSE AND BROWN IN COLOR.
--- NOTE | 2019-08-28 23:41 | NUR ---
RESTING WITH NO SIGNS OR SYMPTOMS OF DISTRESS. SEE MAR FOR MEDICATIONS INFUSING. PATIENT DENIES ISSUES AT THIS TIME. FSBS 116. CPOC.
[2019-08-29] VITALS: BP 114/76
--- NOTE | 2019-08-29 02:46 | NUR ---
ADMINISTERED NAUSEA MEDICATION TO PATIENT PER REQUEST. PATIENT COMPLAINS ABOUT NGT. STATES "I'M READY TO GET THIS OUT. I FEEL LIKE IT IS AIDING IN ALL MY PROBLEMS AND PAIN AT THIS POINT."
[2019-08-29 04:00] VITALS: BP 105/79
--- NOTE | 2019-08-29 04:21 | NUR ---
I have reviewed this patient and I concur with the Shift Assessment completed by the Licensed Practical Nurse today this shift.
[2019-08-29 05:10] LABS: BASOPHILS 0.2 % (0-2); EOSINOPHILS 3.3 % (0-7); HEMATOCRIT 40.7 % (36.0-48.0); HEMOGLOBIN 13.4 g/dL (12-16); IMMATURE GRANULOCYTES 0.4 % (0-5); MCH 29.7 pg (26.0-34.0); MCHC 32.9 g/dL (31.0-37.0); MCV 90.2 fL (80.0-100.0); MEAN PLATELET VOLUME 9.1 fL (7.4-10.4); MONOCYTES 5.5 % (2-11); NEUTROPHILS 82.6 % (40-80); RBC 4.51 10x6/uL (4.00-5.40); WBC 12.1 10x3/uL (4.8-10.8)
[2019-08-29 05:42] LABS: CALC OSMOLALITY 277 mosm/kg (275-300); CALCIUM 8.6 mg/dL (8.5-10.1); CARBON DIOXIDE 29.2 mmol/L (21.0-32.0); CHLORIDE - SERUM 103 mmol/L (98-107); CREATININE - SERUM 0.6 mg/dL (0.6-1.3); GLUCOSE 126 mg/dL (74-106); MAGNESIUM - SERUM 1.8 mg/dL (1.8-2.4); POTASSIUM - SERUM 3.6 mmol/L (3.5-5.1); SODIUM 139 mmol/L (136-145); eGFR NON AFRICAN AMERICAN > 90 mL/min (90-120)
[2019-08-29 05:43] LABS: PLATELET COUNT 366 10x3/uL (130-400)
[2019-08-29 05:56] LABS: UREA NITROGEN 7 mg/dL (7-18)
[2019-08-29 08:56] VITALS: BP 116/78
[2019-08-29 12:18] VITALS: BP 111/77
[2019-08-29 16:34] VITALS: BP 107/70
--- NOTE | 2019-08-29 19:30 | NUR ---
ALERT AND ORIENTED. PATIENT APPEARS WELL. SHE DOES COMPLAIN OF NGT DISCOMFORT. ASKED THAT IT BE TAKEN OUT. STATED THAT SURGEON HAS TO GIVE THE "OKAY" AND SHOULD BE AROUND SOON. PATIENT VERBALIZES UNDERSTANDING.
[2019-08-29 20:00] VITALS: BP 141/75
--- NOTE | 2019-08-29 21:00 | NUR ---
DR. SEGOVIA IN ROOM WITH THIS NURSE. PERFORMED ASSESSMENT AND UNCLAMPED NGT. FLUSHED AND VERIFIED PATENCY OF NGT. HOOKED BACK TO SUCTION. VERY SMALL AMOUNT OF GASTRIC CONTENTS REMOVED THROUGH NGT. ASSISTED DR. SEGOVIA IN REMOVAL OF NGT. PATIENT EXPRESSES IMMEDIATE RELIEF. DENIES FURTHER ISSUES AT THIS TIME. RIGHT UPPER ARM PICC LINE REMAINS PATENT AND INFUSING MEDICATIONS IN ACCORDANCE WITH EMAR. CALL LIGHT IN REACH. CPOC.
[2019-08-30 00:17] VITALS: BP 109/68
--- NOTE | 2019-08-30 03:05 | NUR ---
RESTING WITH NO SIGNS OR SYMPTOMS OF DISTRESS AT THIS TIME. CALL LIGHT IN REACH. CPOC.
[2019-08-30 04:15] VITALS: BP 117/74
[2019-08-30 06:09] LABS: BASOPHILS 0.2 % (0-2); EOSINOPHILS 2.1 % (0-7); HEMATOCRIT 38.9 % (36.0-48.0); HEMOGLOBIN 12.7 g/dL (12-16); IMMATURE GRANULOCYTES 0.3 % (0-5); LYMPHOCYTES 9.2 % (15-50); MCH 29.3 pg (26.0-34.0); MCHC 32.6 g/dL (31.0-37.0); MCV 89.8 fL (80.0-100.0); MEAN PLATELET VOLUME 9.6 fL (7.4-10.4); MONOCYTES 6.2 % (2-11); PLATELET COUNT 381 10x3/uL (130-400); RBC 4.33 10x6/uL (4.00-5.40); RDW 12.9 % (11.5-14.5)
--- NOTE | 2019-08-30 06:20 | NUR ---
I have reviewed this patient and I concur with the Shift Assessment completed by the Licensed Practical Nurse today this shift.
[2019-08-30 06:31] LABS: CALC OSMOLALITY 274 mosm/kg (275-300); CALCIUM 8.1 mg/dL (8.5-10.1); CARBON DIOXIDE 27.8 mmol/L (21.0-32.0); CHLORIDE - SERUM 103 mmol/L (98-107); CREATININE - SERUM 0.5 mg/dL (0.6-1.3); GLUCOSE 111 mg/dL (74-106); MAGNESIUM - SERUM 1.9 mg/dL (1.8-2.4); PHOSPHOROUS 3.5 mg/dL (2.5-4.9); POTASSIUM - SERUM 4.1 mmol/L (3.5-5.1); SODIUM 138 mmol/L (136-145); UREA NITROGEN 8 mg/dL (7-18); eGFR NON AFRICAN AMERICAN > 90 mL/min (90-120)
[2019-08-30 09:23] VITALS: BP 115/73
[2019-08-30 13:12] VITALS: BP 117/84
[2019-08-30 17:20] VITALS: BP 101/59
[2019-08-30 20:00] VITALS: BP 109/67
--- NOTE | 2019-08-30 20:00 | NUR ---
PT SITTING UP IN BED WITHOUT DISTRESS, AOX4. RIGHT UPPER ARM PICC INFUSING TPN @ 40, LR @ 50 WITH DILAUDID SUPERVISOR BACKFILLING. DENIES PAIN AT THIS TIME. PROVIDED ICE WATER AND WARM BLANKET. DENIES OTHER NEEDS. CL IN REACH, WILL CTM
[2019-08-31 00:39] VITALS: BP 123/77
[2019-08-31 04:00] VITALS: BP 104/71
[2019-08-31 05:58] LABS: BASOPHILS 0.6 % (0-2); EOSINOPHILS 2.7 % (0-7); HEMOGLOBIN 14.1 g/dL (12-16); IMMATURE GRANULOCYTES 0.3 % (0-5); LYMPHOCYTES 9.9 % (15-50); MCH 29.8 pg (26.0-34.0); MCHC 32.8 g/dL (31.0-37.0); MCV 90.9 fL (80.0-100.0); MEAN PLATELET VOLUME 9.9 fL (7.4-10.4); MONOCYTES 6.5 % (2-11); PLATELET COUNT 375 10x3/uL (130-400); RBC 4.73 10x6/uL (4.00-5.40); RDW 13.2 % (11.5-14.5); WBC 12.6 10x3/uL (4.8-10.8)
[2019-08-31 06:25] LABS: CALC OSMOLALITY 268 mosm/kg (275-300); CALCIUM 8.7 mg/dL (8.5-10.1); CHLORIDE - SERUM 102 mmol/L (98-107); CREATININE - SERUM 0.7 mg/dL (0.6-1.3); GLUCOSE 96 mg/dL (74-106); PHOSPHOROUS 4.3 mg/dL (2.5-4.9); POTASSIUM - SERUM 3.9 mmol/L (3.5-5.1); SODIUM 135 mmol/L (136-145); UREA NITROGEN 9 mg/dL (7-18); eGFR NON AFRICAN AMERICAN > 90 mL/min (90-120)
--- NOTE | 2019-08-31 07:10 | NUR ---
PT RESTING IN BED. NO SIGNS OF DISTRESS. IV TO RIGHT UPPER ARM PICC LINE PATENT NO REDNESS OR TENDERNESS. INCISION TO ABDOMEN DRESSING CLEAN AND INTACT. DENIES ANY PAIN OR OTHER NEED AT THIS TIME. CALL LIGHT IN REACH. BED LOW POSITION. NO FAMILY AT BEDSIDE AT THIS TIME.
[2019-08-31 08:13] VITALS: BP 112/70
[2019-08-31 13:05] VITALS: BP 151/51
--- NOTE | 2019-08-31 13:24 | NUR ---
Nutrition follow-up: Diet has advanced to regular Parenteral nutrition still infusing @ 40 ml/hr Labs reviewed RDN will monitor pts po intake; hopefully, PN will be discontinued in the next 24-48 hours. RDN following.
[2019-08-31] MEDS ORDERED: HYDROCODON-ACE1 EAC7 PO (13:47)
--- NOTE | 2019-08-31 13:53 | NUR ---
I have reviewed this patient and I concur with the Shift Assessment completed by the Licensed Practical Nurse today this shift.
--- NOTE | 2019-08-31 14:20 | MORECARE ---
CASE MANAGEMENT DISCHARGE SUMMARY PATIENT: MARIANO MONTALVO UNIT: [id number] ADM DATE: 08/18/19 AGE: 39 : 78 SEX: F ROOM/BED: D.2223 AUTHOR: RUBI,DOC PHYSICIAN: REFERRING PHYSICIAN: YVETTE RODRIGUEZ MD DATE OF SERVICE: 08/31/19 Discharge Plan Patient Name: MARIANO MONTALVO Facility: [facility]:[place] : 1980 Planned Disposition: Home Anticipated Discharge Date: Discharge Date: Expected LOS: Initial Reviewer: [email or web address] Initial Review Date: 08/23/2019 Generated: 08/31/19 3:20 pm Comments DCP- Discharge Planning Updated by [email or web address]: Ivana Butcher on 08/31/19 1:[address] Patient Name: MARIANO MONTALVO Encounter No: [id number] : 1980 Primary Insurance: [employer] PPO Anticipated DC Date: Planned Disposition: Home External Planned Provider: : DCP follow-up note: Patient and family in agreement with discharge plan. No changes to plan. Case management will follow and assist as needed. Ivana Hadley DCP- Discharge Planning Updated by [email or web address]: Ania Thorpe on 08/23/19 6:[address] Patient Name: MARIANO MONTALVO Admission Status: Elective Accout number: [id number] Admission Date: 08-18-2019 : 1980 Admission Diagnosis: Attending: YVETTE RODRIGUEZ Current LOS: 5 Anticipated DC Date: Planned Disposition: Home Primary Insurance: [employer] PPO Discharge Planning Comments: CM met with patient to complete initial dc planning assessment. CM educated patient on the CM role and verbal consent given by patient to complete assessment. Patient lives at home with her where she is independent with her care. At discharge patient plans to return home and feels this is a safe discharge. CM discussed availability of home health, rehab services, and medical equipment. Her family will drive her home. Patient denied known discharge needs at this time. CM will continue to follow and will assist as needed with dc plans/needs. Crm Architect: Ania Thorpe DCPIA - Discharge Planning Initial Assessment Updated by [email or web address]: Ania Thorpe on 08/23/19 7:03 pm * Is the patient Alert and Oriented? Yes * How many steps to enter\exit or inside your home? * PCP JENNIFER * Pharmacy [facility] * Preadmission Environment Home with Family * ADLs Independent * Equipment None * List name and contact numbers for known caregivers / representatives who currently or will assist patient after discharge: THOMAS MONTALVO - SPOUSE - [phone] JAQUAN MONTALVO - DAUGHTER- [phone] * Verbal permission to speak to the caregivers and representatives has been obtained from the patient. Yes * Community resources currently utilized None * Additional services required to return to the preadmission environment? No * Can the patient safely return to the preadmission environment? Yes * Has this patient been hospitalized within the prior 30 days at any hospital? No Last DP export: 08/23/19 6:10 pm Patient Name: MARIANO MONTALVO Page [id number] at 1420 All edits/amendments must be made on the electronic document DICTATION DATE: 08/31/19 1420 SLURRY BLENDER: JORDANA 08/31/19 1420 RPT#: [id number] DC DATE: STATUS: ADM IN [facility] [address] [place] [address] END OF REPORT
[2019-08-31] MEDS ORDERED: MIRALAX17 GM PO (14:49)
[2019-08-31] MEDS ORDERED: LEVOFLOXACIN500 MG PO (14:49)
[2019-08-31 16:33] VITALS: BP 105/65
--- NOTE | 2019-08-31 18:25 | NUR ---
DISCHARGE INSTRUCTIONS GIVEN. SEEMS TO UNDERSTAND INSTRUCTION. PICC REMOVED PER . TELEMETRY OFF AND RETURNED. DENIES ANY FURTHER NEED, LEFT WITH HOSPITAL STAFF TO GO HOME IN PERSONAL RIDE WITH .
--- NOTE | 2019-09-01 08:31 | MORECARE ---
CASE MANAGEMENT DISCHARGE SUMMARY PATIENT: MARIANO MONTALVO UNIT: [id number] ADM DATE: 08/18/19 AGE: 39 : 78 SEX: F ROOM/BED: D.2223 AUTHOR: RUBI,DOC PHYSICIAN: REFERRING PHYSICIAN: YVETTE RODRIGUEZ MD DATE OF SERVICE: 09/01/19 Discharge Plan Patient Name: MARIANO MONTALVO Facility: [facility]:[place] : 1980 Planned Disposition: Home Anticipated Discharge Date: Discharge Date: 08/31/2019 Expected LOS: 0 Initial Reviewer: [email or web address] Initial Review Date: 08/23/2019 Generated: 09/01/19 9:30 am Comments DCP- Discharge Planning Updated by [email or web address]: Ivana Butcher on 08/31/19 1:[address] Patient Name: MARIANO MONTALVO Encounter No: [id number] : 1980 Primary Insurance: [id number] PPO Anticipated DC Date: Planned Disposition: Home External Planned Provider: : DCP follow-up note: Patient and family in agreement with discharge plan. No changes to plan. Case management will follow and assist as needed. Ivana Hadley DCP- Discharge Planning Updated by [email or web address]: Ania Thorpe on 08/23/19 6:[address] Patient Name: MARIANO MONTALVO Admission Status: Elective Accout number: [id number] Admission Date: 08-18-2019 : 1980 Admission Diagnosis: Attending: YVETTE RODRIGUEZ Current LOS: 5 Anticipated DC Date: Planned Disposition: Home Primary Insurance: [employer] P[employer] Discharge Planning Comments: CM met with patient to complete initial dc planning assessment. CM educated patient on the CM role and verbal consent given by patient to complete assessment. Patient lives at home with her where she is independent with her care. At discharge patient plans to return home and feels this is a safe discharge. CM discussed availability of home health, rehab services, and medical equipment. Her family will drive her home. Patient denied known discharge needs at this time. CM will continue to follow and will assist as needed with dc plans/needs. Ground Control Approach Technician: Ania Thorpe DCPIA - Discharge Planning Initial Assessment Updated by [email or web address]: Ania Thorpe on 08/23/19 7:03 pm * Is the patient Alert and Oriented? Yes * How many steps to enter\exit or inside your home? * PCP JENNIFER * Pharmacy [facility] * Preadmission Environment Home with Family * ADLs Independent * Equipment None * List name and contact numbers for known caregivers / representatives who currently or will assist patient after discharge: THOMAS MONTALVO - SPOUSE - [phone] JAQUAN MONTALVO - DAUGHTER- [phone] * Verbal permission to speak to the caregivers and representatives has been obtained from the patient. Yes * Community resources currently utilized None * Additional services required to return to the preadmission environment? No * Can the patient safely return to the preadmission environment? Yes * Has this patient been hospitalized within the prior 30 days at any hospital? No Last DP export: 08/31/19 1:20 p Patient Name: MARIANO MONTALVO Page [id number] at 0831 All edits/amendments must be made on the electronic document DICTATION DATE: 09/01/19829 MERCHANDISE SHOPPER: JORDANA 09/01/19829 RPT#: [id number] DC DATE:08/31/19 STATUS: DIS IN [facility] [address] [place] [address] END OF REPORT
== END 2019-08-31 18:27 | disposition home or self-care (01) | DRG 329 ==
LOC: D.MS 13:48 → D.CVICU 13:48 → D.MS 08-23 19:21
PROVIDERS: Surgery; ADMIT Family Medicine; ATTEND Family Medicine
PROC: 0BH17EZ Insertion of Endotracheal Airway into Trachea, Via Natural or Artificial Opening (ICD-10-PCS; 2019-08-20)
PROC: 5A1935Z Respiratory Ventilation, Less than 24 Consecutive Hours (ICD-10-PCS; 2019-08-20)
PROC: 0DTH0ZZ Resection of Cecum, Open Approach (ICD-10-PCS; principal; 2019-08-20 19:20)
PROC: 05HY33Z Insertion of Infusion Device into Upper Vein, Percutaneous Approach (ICD-10-PCS; 2019-08-26)
DX: K35.33 Acute appendicitis with perforation, localized peritonitis, and gangrene, with abscess (principal); J95.821 Acute postprocedural respiratory failure; A41.9 Sepsis, unspecified organism; K56.7 Ileus, unspecified; I97.88 Other intraoperative complications of the circulatory system, not elsewhere classified; M19.90 Unspecified osteoarthritis, unspecified site